=== PATIENT | male | born 1990 ===

== ENCOUNTER 2017-08-27 16:18 | Observation (INO) | payer MEDICAID, OTHER ==
[2017-08-27] MEDS ORDERED: Sodium Chloride 0.9% 1,000 ML IV STA (17:02)
--- NOTE | 2017-08-27 17:33 | ED PDOC ---
Arrival/HPI - General Chief Complaint: ENT Problem Time Seen by Provider: 08/27/17 17:01 Historian: Patient - History of Present Illness Narrative History of Present Illness (Text): 08/27/17 17:30 27-year-old male presents today with a one-day history of sore throat pain with swallowing. Patient also states is having right sided back and abdominal pain for the past 3 weeks that has worsened since yesterday. Patient denies nausea vomiting diarrhea or constipation. He denies chest pain or shortness of breath. He denies any urinary symptoms. Patient denies testicular pain. Patient denies rash. Patient denies fevers or chills. Patient states today he developed a sore throat. Patient states that he came in today because the pain worsened yesterday and he is unable to follow up with a doctor. pt describes the pain as a burning and achy sensation to the right ribs/back. Patient denies sick contacts. no other complaints. no medications have been taken for pain at home. Time/Duration: > week Symptom Onset: Gradual Symptom Course: Worsening Past Medical History - Provider Review Nursing Documentation Reviewed: Yes - Travel History Have you recently traveled outside [place] w/in the past 3 mons?: No - Infectious Disease Hx of Infectious Diseases: None - Tetanus Immunization Tetanus Immunization: Unknown - Psychiatric Hx Psychophysiologic Disorder: No Hx Substance Use: No - Anesthesia Hx Anesthesia: No Hx Anesthesia Reactions: No Hx Malignant Hyperthermia: No Family/Social History - Physician Review Nursing Documentation Reviewed: Yes Family/Social History: Unknown Family HX Smoking Status: Never Smoked Hx Alcohol Use: No Hx Substance Use: No Allergies/Home Meds Allergies/Adverse Reactions: Allergies acetaminophen [From Tylenol] Allergy (Verified 08/27/17 16:51) RASH Review of Systems - Review of Systems Constitutional: absent: Fatigue, Fevers ENT: Sore Throat. absent: Sinus Congestion Respiratory: absent: SOB, Cough Cardiovascular: absent: Chest Pain, Palpitations Gastrointestinal: Abdominal Pain. absent: Constipation, Diarrhea, Nausea, Vomiting Genitourinary Male: Other (no testicular pain). absent: Dysuria, Frequency, Hematuria, Urinary Output Changes Musculoskeletal: Back Pain. absent: Arthralgias, Neck Pain Skin: absent: Rash, Pruritis Neurological: absent: Headache, Dizziness Psychiatric: absent: Anxiety, Depression Physical Exam Vital Signs Reviewed: Yes Vital Signs Temp Pulse Resp BP Pulse Ox 08/27/17 21:33 98.9 F 86 18 157/77 H 100 08/27/17 16:52 99.0 F 88 17 136/81 98 08/27/17 16:35 99.0 F 91 H 20 130/70 99 Temperature: Afebrile Blood Pressure: Normal Pulse: Regular Respiratory Rate: Normal Appearance: Positive for: Well-Appearing, Non-Toxic, Comfortable Pain Distress: None Mental Status: Positive for: Alert and Oriented X 3 - Systems Exam Head: Present: Atraumatic Mouth: Present: Moist Mucous Membranes Neck: Present: Normal Range of Motion Respiratory/Chest: Present: Clear to Auscultation, Good Air Exchange. No: Respiratory Distress, Accessory Muscle Use Cardiovascular: Present: Regular Rate and Rhythm, Normal S1, S2. No: Murmurs Abdomen: Present: Tenderness (minimal ruq tenderness, rlq tenderness). No: Distention, Peritoneal Signs, Rebound, Guarding Back: Present: Normal Inspection, Other (minimal right flank tenderness. ). No : CVA Tenderness, Midline Tenderness, Paraspinal Tenderness Upper Extremity: No: Normal Inspection Lower Extremity: No: Normal Inspection Neurological: Present: GCS=15, Speech Normal Skin: Present: Warm, Dry, Normal Color. No: Rashes Psychiatric: Present: Alert, Oriented x 3 Medical Decision Making ED Course and Treatment: 08/27/17 17:39 Patient is nontoxic well appearing with stable vital signs presenting with right sided back and abdominal pain CBC wbc; 14.1 CMP wnl Lipase wnl Urinalysis trace ketones CAT scan: FINDINGS: Lung bases: No mass. No consolidation. Mediastinum: An air-fluid level is visualized within the distal esophagus, suggestive of decreased motility or reflux. ABDOMEN: Liver: No mass. Gallbladder and bile ducts: No calcified stones. No ductal dilation. Pancreas: Normal contour, without acute peripancreatic stranding. Spleen: No splenomegaly. Adrenals: No mass. Kidneys and ureters: At the midpole of the left kidney, there is a 5 mm hypodense probable cyst. There is no hydronephrosis bilaterally. Stomach and bowel: A few borderline dilated small bowel loops are identified in the left lower quadrant, with an air-fluid level. Partial obstruction cannot be excluded. Evaluation of bowel is limited by the absence of oral contrast. PELVIS: Appendix: No findings to suggest acute appendicitis. Bladder: No mass. Reproductive: Unremarkable as visualized. ABDOMEN and PELVIS: Intraperitoneal space: No free air. Bones/joints: Within the right iliac bone, there is a nonspecific sclerotic lesion measuring 1.1 x 0.7 cm. There is mild disc bulging at L5-S1 Soft tissues: There is minimal herniation of fat into the umbilicus. Vasculature: No abdominal aortic aneurysm. Lymph nodes: No enlarged lymph nodes. IMPRESSION: 1. An air-fluid level is visualized within the distal esophagus, suggestive of decreased motility or reflux. 2. A few borderline dilated small bowel loops are identified in the left lower quadrant, with an air-fluid level. Partial obstruction cannot be excluded. Clinical correlation is recommended. 3. Additional CT findings described above. Patient reassessment: feeling slightly better; still c/o pain to the right side of the abdomen; minimal tenderness noted. Discussed all results with patient in depth case discussed with dr. roberson; will admit observational status for abdominal pain with ? small bowel obstruction with leukocytosis. Call placed to surgical tech all aspects of this case were discussed the attending of record. impression; abdominal pain, pharyngitis admit observational status to med/surg. 08/28/17 00:37 - Lab Interpretations Lab Results: 08/27/17 19:15 08/27/17 19:15 Lab Results 08/27/17 19:15: WBC 14.1 H, RBC 4.54, Hgb 14.0, Hct 40.3 L, MCV 88.8, MCH 30.8, MCHC 34.7, RDW 13.0, Plt Count 228, MPV 10.2, Gran % 84.2 H, Lymph % (Auto) 8.8 L, [place] % (Auto) 5.9, Eos % (Auto) 1.0 L, Baso % (Auto) 0.1, Gran # 11.89 H, Lymph # (Auto) 1.3, [place] # (Auto) 0.8 H, Eos # (Auto) 0.1, Baso # (Auto) 0.02 08/27/17 19:15: Sodium 145, Potassium 3.9, Chloride 105, Carbon Dioxide 26, Anion Gap 18, BUN 15, Creatinine 0.8, Est GFR ( Amer) > 60, Est GFR (Non- Af Amer) > 60, Random Glucose 97, Calcium 9.6, Total Bilirubin 0.4, AST 26, ALT 28, Alkaline Phosphatase 85, Total Creatine Kinase 39, Total Protein 8.0, Albumin 4.8, Globulin 3.2, Albumin/Globulin Ratio 1.5, Lipase 133 08/27/17 17:36: Urine Color Yellow, Urine Appearance Clear, Urine pH 6.0, Ur Specific [place] 1.025, Urine Protein Negative, Urine Glucose (UA) Negative, Urine Ketones Trace H, Urine Blood Negative, Urine Nitrate Negative, Urine Bilirubin Negative, Urine Urobilinogen 0.2, Ur Leukocyte Esterase Negative 08/27/17 17:36: Grp A Beta Strep Ag Negative - RAD Interpretation Radiology Orders: 08/27/17 17:02 ABD & PELVIS IV CONTRAST ONLY [CT] Stat 08/27/17 17:39 CHEST PORTABLE [RAD] Stat - Medication Orders Current Medication Orders: Discontinued Medications Famotidine (Pepcid) 20 mg IVP STAT STA Stop: 08/27/17 23:18 Sodium Chloride (Sodium Chloride 0.9%) 1,000 mls @ 999 mls/hr IV .Q1H1M STA Stop: 08/27/17 18:02 Last Admin: 08/27/17 19:05 Dose: 999 mls/hr eMAR Start Stop Document 08/27/17 19:05 LA (Rec: 08/27/17 19:06 LA [facility]) Intravenous Solution Start Date 08/27/17 Start Time 19:06 End Date 08/27/17 End time 20:07 Total Infusion Time 61 Ketorolac Tromethamine (Toradol) 30 mg IVP STAT STA Stop: 08/27/17 17:03 Last Admin: 08/27/17 19:05 Dose: 30 mg [place] Pain Assessment Document 08/27/17 19:05 LA (Rec: 08/27/17 19:05 [facility] Pain Reassessment Is this a pain reassessment? Yes Sleep Is patient sleeping during reassessment? No Presence of Pain Presence of Pain Yes Pain Scale Used Pain Scale Used Numeric Description Intensity of Pain at present 5 IVP Administration Document 08/27/17 19:05 LA (Rec: 08/27/17 19:05 LA [facility]) Charges for Administration # of IVP Administrations 1 Re-Assess: [place] Pain Assessment Document 08/27/17 20:05 LA (Rec: 08/27/17 20:36 [place] [facility] Pain Reassessment Is this a pain reassessment? Yes Sleep Is patient sleeping during reassessment? No Presence of Pain Presence of Pain Yes Pain Scale Used Pain Scale Used Numeric Location Pain Location Body Site Throat Neck Description Description Constant Intensity of Pain at present 4 Disposition/Present on Arrival - Present on Arrival Any Indicators Present on Arrival: No History of DVT/PE: No History of Uncontrolled Diabetes: No Urinary Catheter: No History of Decub. Ulcer: No History Surgical Site Infection Following: None - Disposition Have Diagnosis and Disposition been Completed?: Yes Diagnosis: Abdominal pain, Leukocytosis Disposition: HOME/ ROUTINE Disposition Time: 00:10 Patient Plan: Observation Patient Problems: Current Active Problems Problem Status Onset Abdominal pain Acute Leukocytosis Acute Condition: FAIR
[2017-08-27 17:52] LABS: URINE BILIRUBIN NEGATIVE (NEGATIVE); URINE BLOOD NEGATIVE (NEGATIVE); URINE GLUCOSE (UA) NEGATIVE (NEGATIVE); URINE LEUKOCYTE ESTERASE NEGATIVE Leu/uL (NEGATIVE); URINE UROBILINOGEN 0.2 E.U./dL (<1 E.U./dL)
[2017-08-27 17:55] LABS: URINE APPEARANCE CLEAR (CLEAR); URINE COLOR YELLOW (YELLOW); URINE PROTEIN NEGATIVE mg/dL (<30 mg/dL)
--- NOTE | 2017-08-27 18:51 | RAD ---
HISTORY: Abdominal pain. History of bronchitis. COMPARISON: None FINDINGS: LUNGS: No active pulmonary disease. PLEURA: No significant pleural effusion identified, no pneumothorax apparent. CARDIOVASCULAR: Normal. OSSEOUS STRUCTURES: No significant abnormalities. VISUALIZED UPPER ABDOMEN: Normal. OTHER FINDINGS: None. IMPRESSION: No active disease.
[2017-08-27 19:26] LABS: BASO # 0.02 K/mm3 (0.0-2.0); BASO % 0.1 % (0.0-3.0); EOS # 0.1 (0.0-0.7); GRAN # 11.89 (1.4-6.5); GRAN % 84.2 % (50.0-68.0); LYMPH # 1.3 (1.2-3.4); LYMPH % 8.8 % (22.0-35.0); MEAN CELL VOLUME 88.8 fl (80.0-105.0); MEAN CORPUSCULAR HEMOGLOBIN 30.8 pg (25.0-35.0); MEAN CORPUSCULAR HGB CONC 34.7 g/dl (31.0-37.0); MEAN PLATELET VOLUME 10.2 fl (7.0-11.0); MONO # 0.8 (0.1-0.6); MONO % 5.9 % (1.0-6.0); RBC 4.54 10^6/uL (3.5-6.1); WHITE BLOOD COUNT 14.1 10^3/ul (4.5-11.0)
[2017-08-27 19:37] LABS: ALB/GLOB RATIO 1.5 (1.1-1.8); ALBUMIN 4.8 g/dL (3.0-4.8); ALT/SGPT 28 U/L (7-56); AST/SGOT 26 U/L (17-59); BLOOD UREA NITROGEN 15 mg/dL (7-21); CALCIUM 9.6 mg/dL (8.4-10.5); GFR AFRICAN-AMERICAN > 60; GFR NON-AFRICAN AMERICAN > 60; LIPASE 133 U/L (23-300)
[2017-08-27] MEDS ORDERED: Iohexol 350 MG/100 ML VIAL ONE (20:00)
--- NOTE | 2017-08-27 22:00 | CT ---
EXAM: CT Abdomen and Pelvis With Intravenous Contrast EXAM DATE/TIME: 08/27/2017 5:02 PM CLINICAL HISTORY: The patient age is 27 years old and is male; Pain; Abdominal pain; Acute; Additional info: Abd pain Facility exam id and description: Ct abdpelciv abd pelvis iv contrast only TECHNIQUE: Axial computed tomography images of the abdomen and pelvis with intravenous contrast. All CT scans at this facility use at least one of these dose optimization techniques: automated exposure control; mA and/or kV adjustment per patient size (includes targeted exams where dose is matched to clinical indication); or iterative reconstruction. Coronal and sagittal reformatted images were created and reviewed. CONTRAST: 100 mL of omni 350 administered intravenously. COMPARISON: No relevant prior studies available. FINDINGS: Lung bases: No mass. No consolidation. Mediastinum: An air-fluid level is visualized within the distal esophagus, suggestive of decreased motility or reflux. ABDOMEN: Liver: No mass. Gallbladder and bile ducts: No calcified stones. No ductal dilation. Pancreas: Normal contour, without acute peripancreatic stranding. Spleen: No splenomegaly. Adrenals: No mass. Kidneys and ureters: At the midpole of the left kidney, there is a 5 mm hypodense probable cyst. There is no hydronephrosis bilaterally. Stomach and bowel: A few borderline dilated small bowel loops are identified in the left lower quadrant, with an air-fluid level. Partial obstruction cannot be excluded. Evaluation of bowel is limited by the absence of oral contrast. PELVIS: Appendix: No findings to suggest acute appendicitis. Bladder: No mass. Reproductive: Unremarkable as visualized. ABDOMEN and PELVIS: Intraperitoneal space: No free air. Bones/joints: Within the right iliac bone, there is a nonspecific sclerotic lesion measuring 1.1 x 0.7 cm. There is mild disc bulging at L5-S1 Soft tissues: There is minimal herniation of fat into the umbilicus. Vasculature: No abdominal aortic aneurysm. Lymph nodes: No enlarged lymph nodes. IMPRESSION: 1. An air-fluid level is visualized within the distal esophagus, suggestive of decreased motility or reflux. 2. A few borderline dilated small bowel loops are identified in the left lower quadrant, with an air-fluid level. Partial obstruction cannot be excluded. Clinical correlation is recommended. 3. Additional CT findings described above.
--- NOTE | 2017-08-28 02:27 | CP.PCM.HP ---
<Rogers Britt - Last Filed: 08/28/17 06:16> History of Present Illness - History of Present Illness History of Present Illness: CC: Abdominal pain HPI: Mr. Bazan is a 27 year old Male who presents with right abdominal pain and throat pain. His abdominal pain is rated 10/10 per patient and is located in the upper R quadrant. Made worse with deep breaths. Radiates to back and up underneath the rib cage, causing him to feel bloated. Patient denies chest pain but admits to shortness of breath over the past few weeks during which the patient has also had intractable diarrhea. Patient describes bowel movements as unformed and non-bloody and occurring 4 times per day. Patient states that yesterday was his first formed bowel movement in a few weeks. Patient reports at least 10 lb weight loss over past month along with poor appetite. Of note, patient had a bout of bronchitis 2 weeks ago at an outside institution that patient said was resolved. Beginning 2 days ago, patient admits to vague upper respiratory symptoms of congestion, runny nose, scratchy throat but no cough. PMHx: Meningitis as a child PSHx: denies Allergies: tylenol (hives) Social: Frequent marijuana use (5-6 times per day). Denies ETOH and tobacco Fam Hx: alcohol abuse in father Meds: denies Present on Admission - Present on Admission Any Indicators Present on Admission: No Review of Systems - Review of Systems Review of Systems: Please refer to HPI. Past Patient History - Infectious Disease Hx of Infectious Diseases: None - Tetanus Immunizations Tetanus Immunization: Unknown - Past Social History Smoking Status: Never Smoked - CARDIAC Hx Cardiac Disorders: No - PULMONARY Hx Respiratory Disorders: Yes Hx Bronchitis: Yes - NEUROLOGICAL Hx Neurological Disorder: Yes Hx Meningitis: Yes (cerebtal age 9) - HEENT Hx HEENT Problems: No - RENAL Hx Chronic Kidney Disease: No - ENDOCRINE/METABOLIC Hx Endocrine Disorders: No - HEMATOLOGICAL/ONCOLOGICAL Hx Blood Disorders: No - INTEGUMENTARY Hx Dermatological Problems: No - MUSCULOSKELETAL/RHEUMATOLOGICAL Hx Musculoskeletal Disorders: No - GASTROINTESTINAL Hx Gastrointestinal Disorders: No - GENITOURINARY/GYNECOLOGICAL Hx Genitourinary Disorders: No - PSYCHIATRIC Hx Psychophysiologic Disorder: Yes Hx Anxiety: Yes Hx Depression: Yes Hx Emotional Abuse: No - SURGICAL HISTORY Hx Surgeries: No - ANESTHESIA Hx Anesthesia: No Hx Anesthesia Reactions: No Hx Malignant Hyperthermia: No Meds Allergies/Adverse Reactions: Allergies Allergy/AdvReac Type Severity Reaction Status Date / Time acetaminophen [From Tylenol] Allergy RASH Verified 08/28/17 03:03 Physical Exam - Constitutional Appears: Well, No Acute Distress - Head Exam Head Exam: ATRAUMATIC, NORMOCEPHALIC - Eye Exam Eye Exam: EOMI, Normal appearance, PERRL Pupil Exam: NORMAL ACCOMODATION - ENT Exam ENT Exam: Mucous Membranes Dry - Neck Exam Neck exam: Positive for: Tenderness. Negative for: Lymphadenopathy - Respiratory Exam Respiratory Exam: Clear to Auscultation Bilateral. absent: Chest Wall Tenderness - Cardiovascular Exam Cardiovascular Exam: RRR, +S1, +S2. absent: Gallop, Rubs - GI/Abdominal Exam GI & Abdominal Exam: Hyperactive Bowel Sounds, Tenderness. absent: Distended, Firm, Rebound - Rectal Exam Rectal Exam: absent: Bloody Stool Results - Vital Signs Recent Vital Signs: Last Vital Signs Temp 98.8 F 08/28/17 01:03 Pulse 80 08/28/17 01:03 Resp 18 08/28/17 01:03 BP 139/75 08/28/17 01:03 Pulse Ox 100 08/28/17 01:03 - Labs Result Diagrams: 08/27/17 19:15 08/27/17 19:15 Assessment & Plan - Assessment and Plan (Free Text) Assessment: Mr Bazan is a 27 M in no acute distress who is admitted for upper respiratory infection and r/o small bowel obstruction. Abdominal pain CT abd/pel showed borderline dilated small bowel loops in LLQ. Partial obstruction can not be ruled out. - IVF NS @125 ordered, as he is currently NPO Ibuprofen to control pain, allergic to acetaminophen - patient denies epigastric pain or radiation to the back - GI consult to evaluate 2-3 weeks of non-bloody diarrhea - Surgery consult to rule out small bowel obstruction- would appreciate recommendations Isolated leukocytosis WBC 14.1 f/u urine cx for possible source URI - begin Levaquin CXR shows no active disease Rapid Strep was negative Throat cx pending Ibuprofen to control pain, allergic to acetaminophen Follow up T4 TSH to evaluate for any thyroiditis that may be contributing f/u AM labs I have discussed this case with Dr. Deya Bravo and she has agreed with my assessments <Deya Bravo - Last Filed: 08/28/17 20:57> Results - Vital Signs Recent Vital Signs: Last Vital Signs Temp 98.3 F 08/28/17 17:45 Pulse 91 H 08/28/17 17:45 Resp 20 08/28/17 17:45 BP 127/84 08/28/17 17:45 Pulse Ox 100 08/28/17 17:45 - Labs Result Diagrams: 08/28/17 06:00 08/28/17 06:00 Labs: Laboratory Results - last 24 hr 08/28/17 08/28/17 08/28/17 06:00 06:00 06:00 WBC 11.5 H RBC 4.45 Hgb 13.6 L Hct 39.2 L MCV 88.1 MCH 30.6 MCHC 34.7 RDW 12.9 Plt Count 208 MPV 10.5 Gran % 74.3 H Lymph % (Auto) 16.3 L [place] % (Auto) 7.5 H Eos % (Auto) 1.6 Baso % (Auto) 0.3 Gran # 8.57 H Lymph # (Auto) 1.9 [place] # (Auto) 0.9 H Eos # (Auto) 0.2 Baso # (Auto) 0.03 Sodium 145 Potassium 3.3 L Chloride 106 Carbon Dioxide 25 Anion Gap 17 BUN 10 Creatinine 0.7 L Est GFR ( Amer) > 60 Est GFR (Non-Af Amer) > 60 Random Glucose 85 Calcium 9.1 Magnesium 1.8 Total Bilirubin 0.5 AST 20 ALT 27 Alkaline Phosphatase 64 Total Protein 7.0 Albumin 4.3 Globulin 2.7 Albumin/Globulin Ratio 1.6 Thyroxine (T4) 6.8 TSH 3rd Generation 1.65
[2017-08-28 02:44] VITALS: BMI 26.6
[2017-08-28] MEDS ORDERED: Pneumococcal 23-Valent Vaccine IM ONE (02:44)
[2017-08-28] MEDS: Sodium Chloride 0.9% 1,000 ML IV SCH ×3 (03:11→18:17)
[2017-08-28 06:49] LABS: BASO # 0.03 K/mm3 (0.0-2.0); BASO % 0.3 % (0.0-3.0); EOS # 0.2 (0.0-0.7); EOS % 1.6 % (1.5-5.0); GRAN # 8.57 (1.4-6.5); GRAN % 74.3 % (50.0-68.0); HEMOGLOBIN 13.6 g/dL (14.0-18.0); LYMPH # 1.9 (1.2-3.4); LYMPH % 16.3 % (22.0-35.0); MEAN CELL VOLUME 88.1 fl (80.0-105.0); MEAN CORPUSCULAR HEMOGLOBIN 30.6 pg (25.0-35.0); MEAN CORPUSCULAR HGB CONC 34.7 g/dl (31.0-37.0); MEAN PLATELET VOLUME 10.5 fl (7.0-11.0); MONO # 0.9 (0.1-0.6); MONO % 7.5 % (1.0-6.0); RBC 4.45 10^6/uL (3.5-6.1); RED CELL DISTRIBUTION WIDTH 12.9 % (11.5-14.5); WHITE BLOOD COUNT 11.5 10^3/ul (4.5-11.0)
[2017-08-28 07:25] LABS: T4 6.8 ug/dL (5.5-11.0)
--- NOTE | 2017-08-28 07:32 | CP.PCM.CON ---
History of Present Illness - History of Present Illness History of Present Illness: GI Consult Note for Dr. David Alcantara, PGY-3 This is a 27 yo with PMH of meningitis as child and active daily marijuana use ( 5-6x per day) who presents with 3-4 weeks abdominal pain and diarrhea. Reports diarrhea watery/loose, 4x per day on average, never bloody/tarry black. Normal formed BM 2 days prior to presentation, and then no BM since, but is still passing flatus daily. Reports chronic lower abdominal pain along waistline region, but more prominent in RUQ/RLQ regions, and was prompted to present after developing an acute worsening of the pain yesterday at RLQ region (since resolved). Admits intermittent mild nausea, but denies emesis/hematemesis, chest pain, shortness of breath, PO intolerance, greasy/fatty stools floating in bowel. Does admit to reduced appetite, intermittent sense of bloating, and approximately 10lb weight loss over last month (unintentional) due to reduced PO intake. Denies fevers, chills, dysuria, hematuria, focal weakness, or excessive belching. Does admit to sexual activity, > 1 partner, heterosexual only, not using protection, and later admits to having unprotected sex approx 1 week prior to onset of symptoms. Denies any hx of STI. All other ROS in 12- system review negative. PMH: as above PSH: denies Fam Hx: pt unsure Soc Hx: denies tobacco, admits social EtOH, regular marijuana use (5-6x per day according to pt report to primary team), denies other illicits, denies ever IVDA PMD: None Review of Systems - Review of Systems All systems: reviewed and no additional remarkable complaints except (as per HPI ) Past Patient History - Infectious Disease Hx of Infectious Diseases: None - Tetanus Immunizations Tetanus Immunization: Unknown - Past Social History Smoking Status: Never Smoked - CARDIAC Hx Cardiac Disorders: No - PULMONARY Hx Respiratory Disorders: Yes Hx Bronchitis: Yes - NEUROLOGICAL Hx Neurological Disorder: Yes Hx Meningitis: Yes (cerebtal age 9) - HEENT Hx HEENT Problems: No - RENAL Hx Chronic Kidney Disease: No - ENDOCRINE/METABOLIC Hx Endocrine Disorders: No - HEMATOLOGICAL/ONCOLOGICAL Hx Blood Disorders: No - INTEGUMENTARY Hx Dermatological Problems: No - MUSCULOSKELETAL/RHEUMATOLOGICAL Hx Musculoskeletal Disorders: No - GASTROINTESTINAL Hx Gastrointestinal Disorders: No - GENITOURINARY/GYNECOLOGICAL Hx Genitourinary Disorders: No - PSYCHIATRIC Hx Psychophysiologic Disorder: Yes Hx Anxiety: Yes Hx Depression: Yes Hx Emotional Abuse: No - SURGICAL HISTORY Hx Surgeries: No - ANESTHESIA Hx Anesthesia: No Hx Anesthesia Reactions: No Hx Malignant Hyperthermia: No Meds Allergies/Adverse Reactions: Allergies Allergy/AdvReac Type Severity Reaction Status Date / Time acetaminophen [From Tylenol] Allergy RASH Verified 08/28/17 03:03 - Medications Medications: Current Medications Sodium Chloride (Sodium Chloride 0.9%) 1,000 mls @ 125 mls/hr IV .Q8H [facility] Last Admin: 08/28/17 03:11 Dose: 125 mls/hr Levofloxacin/Dextrose (Levaquin 500mg) 500 mg in 100 mls @ 100 mls/hr IVPB DAILY ITZ PRN Reason: Protocol Ketorolac Tromethamine (Toradol) 15 mg IVP Q6H PRN PRN Reason: Pain, moderate (4-7) Ondansetron HCl (Zofran Inj) 4 mg IVP Q4H PRN PRN Reason: Nausea/Vomiting Physical Exam - Constitutional Appears: Well, Non-toxic, No Acute Distress - Head Exam Head Exam: ATRAUMATIC, NORMAL INSPECTION, NORMOCEPHALIC - Eye Exam Eye Exam: EOMI, Normal appearance. absent: Conjunctival injection, Scleral icterus Pupil Exam: absent: Fixed, Irregular - ENT Exam ENT Exam: Mucous Membranes Moist - Neck Exam Neck exam: Positive for: Normal Inspection - Respiratory Exam Respiratory Exam: Clear to Auscultation Bilateral, NORMAL BREATHING PATTERN. absent: Accessory Muscle Use, Chest Wall Tenderness, Decreased Breath Sounds, Prolonged Expiratory Phase, Rales, Rhonchi, Wheezes, Respiratory Distress - Cardiovascular Exam Cardiovascular Exam: REGULAR RHYTHM, RRR, +S1, +S2. absent: Bradycardia, Tachycardia, Irregular Rhythm, JVD, +S4 - GI/Abdominal Exam GI & Abdominal Exam: Normal Bowel Sounds, Soft, Tenderness (mild tenderness at RUQ and RLQ, RLQ > RUQ, no flank or CVA tenderness bilaterally). absent: Diminished Bowel Sounds, Distended, Firm, Guarding, Hyperactive Bowel Sounds, Hypoactive Bowel Sounds, Mass, Organomegaly, Pulsatile Mass, Rigid - Extremities Exam Extremities exam: Positive for: normal capillary refill, normal inspection, pedal pulses present. Negative for: calf tenderness, pedal edema, tenderness - Back Exam Back exam: absent: CVA tenderness (L), CVA tenderness (R) - Neurological Exam Additional comments: awake and alert, moving all extremities spontaneously, following all commands appropriately - Psychiatric Exam Psychiatric exam: Normal Affect, Normal Mood - Skin Skin Exam: Dry, Intact, Normal Color, Warm Results - Vital Signs Recent Vital Signs: Last Vital Signs Temp 98.7 F 08/28/17 01:39 Pulse 80 08/28/17 01:39 Resp 18 08/28/17 01:39 BP 124/87 08/28/17 01:39 Pulse Ox 100 08/28/17 01:03 - Labs Result Diagrams: 08/28/17 06:00 08/28/17 06:00 Labs: Laboratory Results - last 24 hr 08/28/17 08/28/17 06:00 06:00 WBC 11.5 H RBC 4.45 Hgb 13.6 L Hct 39.2 L MCV 88.1 MCH 30.6 MCHC 34.7 RDW 12.9 Plt Count 208 MPV 10.5 Gran % 74.3 H Lymph % (Auto) 16.3 L [place] % (Auto) 7.5 H Eos % (Auto) 1.6 Baso % (Auto) 0.3 Gran # 8.57 H Lymph # (Auto) 1.9 [place] # (Auto) 0.9 H Eos # (Auto) 0.2 Baso # (Auto) 0.03 Thyroxine (T4) 6.8 Assessment & Plan - Assessment and Plan (Free Text) Assessment: This is a 27 yo with PMH of meningitis as child and active daily marijuana use ( 5-6x per day) who presents with 3-4 weeks abdominal pain and diarrhea. GI was consulted due to CT being read as cannot rule out SBO, as well as RUQ/RLQ abd pain. Plan: RLQ/RUQ abd pain with nausea, no emesis Persistent diarrhea x3-4 weeks Air-fluid level at LLQ on CT abd/pelvis Area suspicious for inflammation at cecal region on CT -Diarrhea x3-4 weeks with decreased PO intake and RUQ/RLQ abd pain, suggestive of enteritis/collitis vs cholecystitis vs slowly developing appendicitis vs 2/2 significant and prolonged marijuana use -CT abd/pelvis obtained, notable for air-fluid level in distal esophagus ( decreased motility vs reflux), few borderline dilated small bowel loops in the left lower quadrant with air-fluid level (Partial obstruction cannot be excluded ) -Given lack of fever and WBCs, less likely appendicitis, but area in cecal region on CT concerning for inflammation, not clearly visible, will order CT abd /pelvis with PO contrast and reassess -Unlikely SBO as patient continues to have flatus daily -Trial clear liquid diet -Instructed pt in marijuana avoidance, in GI side-effects associated with marijuana use -Surgery also consulted, appreciate their input; no surgical indications at this time as per Surgery Patient seen, reviewed, and discussed with attending, Dr. Hernandez
[2017-08-28 07:42] LABS: ALB/GLOB RATIO 1.6 (1.1-1.8); ALBUMIN 4.3 g/dL (3.0-4.8); ALT/SGPT 27 U/L (7-56); AST/SGOT 20 U/L (17-59); BLOOD UREA NITROGEN 10 mg/dL (7-21); CALCIUM 9.1 mg/dL (8.4-10.5); GFR AFRICAN-AMERICAN > 60; GFR NON-AFRICAN AMERICAN > 60
[2017-08-28] MEDS ORDERED: Potassium Chloride 40 mEq/30 ml LIQ UD PO ONE (08:35)
--- NOTE | 2017-08-28 08:59 | CP.PCM.CON ---
History of Present Illness - History of Present Illness History of Present Illness: Surgery Consult: Dr. Winters Pt is a 27M with no significant PMHx who [place] [facility] [place] with complaints of abdominal pain x 1 month. Pt states he has been having on/off abdominal pain for the past month with non-bloody diarrhea. Pt states the pain is mostly located in the RLQ with radiation to the back. He states the pain isn't associated with anything, however he did note an improvement when avoiding fatty /salty foods. Pt has been waiting to follow up with a medical doctor however yesterday his pain was severe and he decided to come to the ER. He denies any other associated symptoms such as nausea/vomiting, fevers or chills. In the ER, pt had a CT abdomen/pelvis which showed non-specific findings & some dilated loop of intestine concerning for obstruction. Surgery called to evaluate. Currently, pt is resting comfortably in bed. States he feels better compared to when he came in. Continues to have loose BMs. Denies N/V, F/C, chest pain or SOB. PMHx: meningitis as infant PSHx: denies SocialHx: denies smoking, EtOH/drugs All: Acetaminophen Review of Systems - Review of Systems All systems: reviewed and no additional remarkable complaints except (as per HPI ) Past Patient History - Infectious Disease Hx of Infectious Diseases: None - Tetanus Immunizations Tetanus Immunization: Unknown - Past Social History Smoking Status: Never Smoked - CARDIAC Hx Cardiac Disorders: No - NEUROLOGICAL Hx Meningitis: Yes - HEENT Hx HEENT Problems: No - RENAL Hx Chronic Kidney Disease: No - ENDOCRINE/METABOLIC Hx Endocrine Disorders: No - HEMATOLOGICAL/ONCOLOGICAL Hx Blood Disorders: No - INTEGUMENTARY Hx Dermatological Problems: No - MUSCULOSKELETAL/RHEUMATOLOGICAL Hx Musculoskeletal Disorders: No - GASTROINTESTINAL Hx Gastrointestinal Disorders: No - GENITOURINARY/GYNECOLOGICAL Hx Genitourinary Disorders: No - PSYCHIATRIC Hx Psychophysiologic Disorder: Yes Hx Anxiety: Yes Hx Depression: Yes Hx Emotional Abuse: No - SURGICAL HISTORY Hx Surgeries: No - ANESTHESIA Hx Anesthesia: No Hx Anesthesia Reactions: No Hx Malignant Hyperthermia: No Meds Allergies/Adverse Reactions: Allergies Allergy/AdvReac Type Severity Reaction Status Date / Time acetaminophen [From Tylenol] Allergy RASH Verified 08/28/17 03:03 - Medications Medications: Current Medications Sodium Chloride (Sodium Chloride 0.9%) 1,000 mls @ 125 mls/hr IV .Q8H [facility] Last Admin: 08/28/17 03:11 Dose: 125 mls/hr Levofloxacin/Dextrose (Levaquin 500mg) 500 mg in 100 mls @ 100 mls/hr IVPB DAILY [facility] PRN Reason: Protocol Ketorolac Tromethamine (Toradol) 15 mg IVP Q6H PRN PRN Reason: Pain, moderate (4-7) Ondansetron HCl (Zofran Inj) 4 mg IVP Q4H PRN PRN Reason: Nausea/Vomiting Physical Exam - Constitutional Appears: Well, No Acute Distress - Head Exam Head Exam: ATRAUMATIC, NORMOCEPHALIC - Eye Exam Eye Exam: Normal appearance - ENT Exam ENT Exam: Mucous Membranes Moist - Respiratory Exam Respiratory Exam: NORMAL BREATHING PATTERN - Cardiovascular Exam Cardiovascular Exam: RRR - GI/Abdominal Exam GI & Abdominal Exam: Soft. absent: Distended, Guarding, Rebound, Tenderness - Neurological Exam Neurological exam: Alert, Oriented x3 - Skin Skin Exam: Dry, Warm Results - Vital Signs Recent Vital Signs: Last Vital Signs Temp 98.3 F 08/28/17 06:00 Pulse 110 H 08/28/17 06:00 Resp 18 08/28/17 06:00 BP 120/73 08/28/17 06:00 Pulse Ox 99 08/28/17 06:00 - Labs Result Diagrams: 08/28/17 06:00 08/28/17 06:00 Labs: Laboratory Results - last 24 hr 08/28/17 08/28/17 08/28/17 06:00 06:00 06:00 WBC 11.5 H RBC 4.45 Hgb 13.6 L Hct 39.2 L MCV 88.1 MCH 30.6 MCHC 34.7 RDW 12.9 Plt Count 208 MPV 10.5 Gran % 74.3 H Lymph % (Auto) 16.3 L [place] % (Auto) 7.5 H Eos % (Auto) 1.6 Baso % (Auto) 0.3 Gran # 8.57 H Lymph # (Auto) 1.9 [place] # (Auto) 0.9 H Eos # (Auto) 0.2 Baso # (Auto) 0.03 Sodium 145 Potassium 3.3 L Chloride 106 Carbon Dioxide 25 Anion Gap 17 BUN 10 Creatinine 0.7 L Est GFR ( Amer) > 60 Est GFR (Non-Af Amer) > 60 Random Glucose 85 Calcium 9.1 Total Bilirubin 0.5 AST 20 ALT 27 Alkaline Phosphatase 64 Total Protein 7.0 Albumin 4.3 Globulin 2.7 Albumin/Globulin Ratio 1.6 Thyroxine (T4) 6.8 TSH 3rd Generation 1.65 - Imaging and Cardiology CT scan - abdomen Status: Image reviewed by me, Report reviewed by me Assessment & Plan - Assessment and Plan (Free Text) Assessment: 27M with abdominal pain & diarrhea; r/o SBO Plan: - pt is not clinically obstructed & abdominal pain is improving - will start CLD and see how he tolerates - no plan for surgical intervention at this time; will follow - d/w Dr. Singh Calvo, PGY-3
[2017-08-28] MEDS ORDERED: levoFLOXacin 500 mg in D5W 500 MG/100 ML BAG IVPB SCH (10:00)
[2017-08-28] MEDS ORDERED: levoFLOXacin 500 MG TAB PO SCH (10:00)
[2017-08-29] MEDS: Sodium Chloride 0.9% 1,000 ML IV SCH (02:10)
[2017-08-29] MEDS ORDERED: Pantoprazole 40 mg EC Tab PO SCH (06:00)
[2017-08-29] MEDS ORDERED: Barium Sulfate Susp 2.1% w/v, 2.0% w/w 450 mL Bottle PO ONE (07:23)
[2017-08-29 08:03] LABS: BASO # 0.02 K/mm3 (0.0-2.0); BASO % 0.2 % (0.0-3.0); EOS # 0.3 (0.0-0.7); EOS % 2.9 % (1.5-5.0); GRAN # 8.14 (1.4-6.5); GRAN % 68.9 % (50.0-68.0); HEMOGLOBIN 13.1 g/dL (14.0-18.0); LYMPH # 2.3 (1.2-3.4); LYMPH % 19.7 % (22.0-35.0); MEAN CELL VOLUME 87.7 fl (80.0-105.0); MEAN CORPUSCULAR HGB CONC 35.3 g/dl (31.0-37.0); MEAN PLATELET VOLUME 10.1 fl (7.0-11.0); MONO % 8.3 % (1.0-6.0); RBC 4.23 10^6/uL (3.5-6.1); RED CELL DISTRIBUTION WIDTH 12.7 % (11.5-14.5); WHITE BLOOD COUNT 11.8 10^3/ul (4.5-11.0)
[2017-08-29 08:21] LABS: ALB/GLOB RATIO 1.4 (1.1-1.8); ALT/SGPT 30 U/L (7-56); AST/SGOT 15 U/L (17-59); BLOOD UREA NITROGEN 7 mg/dL (7-21); CALCIUM 8.6 mg/dL (8.4-10.5); GFR AFRICAN-AMERICAN > 60; GFR NON-AFRICAN AMERICAN > 60
--- NOTE | 2017-08-29 09:01 | CP.PCM.PN ---
Subjective - Date & Time of Evaluation Date of Evaluation: 08/29/17 Time of Evaluation: 08:59 - Subjective Subjective: General Surgery Note for: Dr. Winters. Pt was seen and examined this morning at bedside. Pt was advanced to clears but then developed abdominal pain and had 4 bouts of diarrhea. He is now placed NPO and currently does not complain of abdominal pain or nausea or vomiting. Denies any other overnight events. Objective - Vital Signs/Intake and Output Vital Signs (last 24 hours): Temp Pulse Resp BP Pulse Ox 98.5 F 86 20 122/82 99 08/29/17 08:55 08/29/17 08:55 08/29/17 08:55 08/29/17 08:55 08/29/17 08:55 Intake and Output: 08/29/17 08/29/17 06:59 18:59 Intake Total 1320 Balance 1320 - Medications Medications: Current Medications Famotidine (Pepcid) 20 mg PO 1000,2200 [facility] Last Admin: 08/28/17 21:32 Dose: 20 mg Sodium Chloride (Sodium Chloride 0.9%) 1,000 mls @ 125 mls/hr IV .Q8H [facility] Last Admin: 08/29/17 02:10 Dose: 125 mls/hr Ketorolac Tromethamine (Toradol) 15 mg IVP Q6H PRN PRN Reason: Pain, moderate (4-7) Last Admin: 08/29/17 06:31 Dose: 15 mg Ondansetron HCl (Zofran Inj) 4 mg IVP Q4H PRN PRN Reason: Nausea/Vomiting - Labs Labs: 08/29/17 07:45 08/29/17 07:45 - Constitutional Appears: Well, Non-toxic, No Acute Distress - Head Exam Head Exam: ATRAUMATIC, NORMOCEPHALIC - Eye Exam Eye Exam: EOMI, Normal appearance Pupil Exam: PERRL - Respiratory Exam Respiratory Exam: Clear to Ausculation Bilateral, NORMAL BREATHING PATTERN. absent: Accessory Muscle Use, Wheezes, Respiratory Distress - Cardiovascular Exam Cardiovascular Exam: REGULAR RHYTHM - GI/Abdominal Exam GI & Abdominal Exam: Soft, Tenderness (RLQ to deep palpation), Normal Bowel Sounds. absent: Distended, Firm, Guarding, Rigid - Neurological Exam Neurological Exam: Alert, Awake, Normal Gait, Oriented x3 - Psychiatric Exam Psychiatric exam: Normal Affect, Normal Mood - Skin Skin Exam: Dry, Intact, Normal Color, Warm. absent: Cyanosis, Petechiae Assessment and Plan - Assessment and Plan (Free Text) Assessment: Pt is a 27 yo M with abdominal pain and diarrhea, r/o SBO Plan: - On CLD and tolerating - Repeat CT with PO contrast showed no acute pathology - No surgical intervention planned at this time - Advance diet as tolerated - Discussed with Dr. Winters.
[2017-08-29] MEDS ORDERED: Benzocaine/Menthol (Cepacol) Lozenge MT PRN (11:46)
--- NOTE | 2017-08-29 13:16 | CT ---
PROCEDURE: CT Abdomen and Pelvis with contrast HISTORY: RLQ tenderness, nausea COMPARISON: Abdomen pelvis CT with contrast 08/27/2017. TECHNIQUE: Helical CT of the abdomen and pelvis was performed following oral contrast administration. Intravenous contrast was not administered as per referring physician request. Contrast dose: None Radiation dose: Total exam DLP = 419.66 mGy-cm. This CT exam was performed using one or more of the following dose reduction techniques: Automated exposure control, adjustment of the mA and/or kV according to patient size, and/or use of iterative reconstruction technique. FINDINGS: LOWER THORAX: Unremarkable. LIVER: Unremarkable. No gross lesion or ductal dilatation. GALLBLADDER AND BILE DUCTS: Vicarious excretion of iodinated contrast material identified within the gallbladder. PANCREAS: Unremarkable. No gross lesion or ductal dilatation. SPLEEN: Unremarkable. ADRENALS: Unremarkable. No mass. KIDNEYS AND URETERS: Unremarkable. No hydronephrosis. No solid mass. VASCULATURE: Unremarkable. No aortic aneurysm. BOWEL: Unremarkable. No obstruction. No gross mural thickening. APPENDIX: Stable, normal appearing appendix. PERITONEUM: Unremarkable. No free fluid. No free air. LYMPH NODES: Unremarkable. No enlarged lymph nodes. BLADDER: Unremarkable. REPRODUCTIVE: Unremarkable. BONES: Stable likely benign sclerotic focus right innominate bone. OTHER FINDINGS: None. IMPRESSION: 1. Nonacute abdomen pelvis CT examination including the appearance of the large and small bowel bowel/appendix. 2. No ascites or free intrarenal gas or urinary tract obstruction grossly evident.
--- NOTE | 2017-08-29 15:38 | CP.PCM.DIS ---
<Bj Romero - Last Filed: 08/29/17 22:15> Provider - Provider Date of Admission: 08/28/17 00:02 Attending physician: Dilcia Awad MD Time Spent in preparation of Discharge (in minutes): 45 Hospital Course - Lab Results Lab Results: Most Recent Lab Values WBC 11.8 10^3/ul (4.5-11.0) H 08/29/17 07:45 RBC 4.23 10^6/uL (3.5-6.1) 08/29/17 07:45 Hgb 13.1 g/dL (14.0-18.0) L 08/29/17 07:45 Hct 37.1 % (42.0-52.0) L 08/29/17 07:45 MCV 87.7 fl (80.0-105.0) 08/29/17 07:45 MCH 31.0 pg (25.0-35.0) 08/29/17 07:45 MCHC 35.3 g/dl (31.0-37.0) 08/29/17 07:45 RDW 12.7 % (11.5-14.5) 08/29/17 07:45 Plt Count 200 10^3/uL (120.0-450.0) 08/29/17 07:45 MPV 10.1 fl (7.0-11.0) 08/29/17 07:45 Gran % 68.9 % (50.0-68.0) H 08/29/17 07:45 Lymph % (Auto) 19.7 % (22.0-35.0) L 08/29/17 07:45 [place] % (Auto) 8.3 % (1.0-6.0) H 08/29/17 07:45 Eos % (Auto) 2.9 % (1.5-5.0) 08/29/17 07:45 Baso % (Auto) 0.2 % (0.0-3.0) 08/29/17 07:45 Gran # 8.14 (1.4-6.5) H 08/29/17 07:45 Lymph # (Auto) 2.3 (1.2-3.4) 08/29/17 07:45 [place] # (Auto) 1.0 (0.1-0.6) H 08/29/17 07:45 Eos # (Auto) 0.3 (0.0-0.7) 08/29/17 07:45 Baso # (Auto) 0.02 K/mm3 (0.0-2.0) 08/29/17 07:45 Sodium 142 mmol/L (132-148) 08/29/17 07:45 Potassium 3.7 mmol/L (3.6-5.0) 08/29/17 07:45 Chloride 105 mmol/L (98-107) 08/29/17 07:45 Carbon Dioxide 23 mmol/L (21-33) 08/29/17 07:45 Anion Gap 18 (10-20) 08/29/17 07:45 BUN 7 mg/dL (7-21) 08/29/17 07:45 Creatinine 0.7 mg/dl (0.8-1.5) L 08/29/17 07:45 Est GFR ( Amer) > 60 08/29/17 07:45 Est GFR (Non-Af Amer) > 60 08/29/17 07:45 Random Glucose 74 mg/dL (70-110) 08/29/17 07:45 Calcium 8.6 mg/dL (8.4-10.5) 08/29/17 07:45 Magnesium 1.8 mg/dL (1.7-2.2) 08/28/17 06:00 Total Bilirubin 0.7 mg/dL (0.2-1.3) 08/29/17 07:45 AST 15 U/L (17-59) L D 08/29/17 07:45 ALT 30 U/L (7-56) 08/29/17 07:45 Alkaline Phosphatase 59 U/L (38-126) 08/29/17 07:45 Total Creatine Kinase 39 U/L (35-230) 08/27/17 19:15 Total Protein 7.0 g/dL (5.8-8.3) 08/29/17 07:45 Albumin 4.0 g/dL (3.0-4.8) 08/29/17 07:45 Globulin 2.9 gm/dL 08/29/17 07:45 Albumin/Globulin Ratio 1.4 (1.1-1.8) 08/29/17 07:45 Lipase 133 U/L (23-300) 08/27/17 19:15 Thyroxine (T4) 6.8 ug/dL (5.5-11.0) 08/28/17 06:00 TSH 3rd Generation 1.65 mIU/mL (0.46-4.68) 08/28/17 06:00 Urine Color Yellow (YELLOW) 08/27/17 17:36 Urine Appearance Clear (CLEAR) 08/27/17 17:36 Urine pH 6.0 (4.7-8.0) 08/27/17 17:36 Ur Specific [place] 1.025 (1.005-1.035) 08/27/17 17:36 Urine Protein Negative mg/dL (<30 mg/dL) 08/27/17 17:36 Urine Glucose (UA) Negative mg/dL (NEGATIVE) 08/27/17 17:36 Urine Ketones Trace mg/dL (NEGATIVE) H 08/27/17 17:36 Urine Blood Negative (NEGATIVE) 08/27/17 17:36 Urine Nitrate Negative (NEGATIVE) 08/27/17 17:36 Urine Bilirubin Negative (NEGATIVE) 08/27/17 17:36 Urine Urobilinogen 0.2 E.U./dL (<1 E.U./dL) 08/27/17 17:36 Ur Leukocyte Esterase Negative [place]/uL (NEGATIVE) 08/27/17 17:36 Grp A Beta Strep Ag Negative (NEGATIVE) 08/27/17 17:36 - Hospital Course Hospital Course: Mr. Bazan is a 27 year old male with PMH of meningitis as a child presenting with right abdominal pain and throat pain. In the course of his hospital stay, patient underwent abdominal/pelvic CT scans and chest xray. Initial abdominal CT with IV contrast showed borderline dilation of small bowel loops and air fluid levels in the distal esophagus indicating possible reflux. CT abdomen and pelvis with PO contrast was unremarkable, chest xray showed no active disease. Gastroenterology (Dr. Hernandez) and surgery (Dr. Winters) were consulted. Gastroenterology recommended trial of clear liquid diet for the abdominal pain. The patient states that the abdominal pain has improved. Surgery indicates no surgical intervention at this time. Patient's throat pain resolved and he is only complaining of a stuffy nose where he was instructed to drink plenty of fluids and get enough rest. Patient's diet was advanced to solid foods and he tolerated it well. Patient is now medically stable for discharge. Patient was scheduled to follow up at the [facility] at [place] next week and was further instructed to return to the emergency room for reoccurring symptoms or any other symptoms requiring any medical attention. Discharge Exam - Head Exam Head Exam: ATRAUMATIC, NORMOCEPHALIC - Eye Exam Eye Exam: Normal appearance - ENT Exam ENT Exam: Mucous Membranes Moist - Neck Exam Neck exam: Normal Inspection - Respiratory Exam Respiratory Exam: Clear to PA & Lateral, NORMAL BREATHING PATTERN. absent: Wheezes - Cardiovascular Exam Cardiovascular Exam: REGULAR RHYTHM, +S1, +S2 - GI/Abdominal Exam GI & Abdominal Exam: Normal Bowel Sounds, Soft, Unremarkable. absent: Tenderness - Extremities Exam Extremities exam: normal inspection - Psychiatric Exam Psychiatric exam: Normal Affect, Normal Mood - Skin Skin Exam: Dry, Normal Color, Warm Discharge Plan - Follow Up Plan Condition: FAIR Disposition: HOME/ ROUTINE Instructions: Acute Abdominal Pain (DC), Acute Abdominal Pain (GEN) Additional Instructions: 1. Follow up with [facility] as scheduled, on September 07 at 1 pm. 2. For cold symptoms, please drink lots of fluids and rest. Tylenol as needed. Return to ED if symptoms persist or worsen. 3. Stop taking Ibuprofen. 4 Please return if symptoms return. <Tahira Hernandez V - Last Filed: 08/29/17 23:32> Provider - Provider Date of Admission: 08/28/17 00:02 Attending physician: Dilcia Awad MD Hospital Course - Lab Results Lab Results: Most Recent Lab Values WBC 11.8 10^3/ul (4.5-11.0) H 08/29/17 07:45 RBC 4.23 10^6/uL (3.5-6.1) 08/29/17 07:45 Hgb 13.1 g/dL (14.0-18.0) L 08/29/17 07:45 Hct 37.1 % (42.0-52.0) L 08/29/17 07:45 MCV 87.7 fl (80.0-105.0) 08/29/17 07:45 MCH 31.0 pg (25.0-35.0) 08/29/17 07:45 MCHC 35.3 g/dl (31.0-37.0) 08/29/17 07:45 RDW 12.7 % (11.5-14.5) 08/29/17 07:45 Plt Count 200 10^3/uL (120.0-450.0) 08/29/17 07:45 MPV 10.1 fl (7.0-11.0) 08/29/17 07:45 Gran % 68.9 % (50.0-68.0) H 08/29/17 07:45 Lymph % (Auto) 19.7 % (22.0-35.0) L 08/29/17 07:45 [place] % (Auto) 8.3 % (1.0-6.0) H 08/29/17 07:45 Eos % (Auto) 2.9 % (1.5-5.0) 08/29/17 07:45 Baso % (Auto) 0.2 % (0.0-3.0) 08/29/17 07:45 Gran # 8.14 (1.4-6.5) H 08/29/17 07:45 Lymph # (Auto) 2.3 (1.2-3.4) 08/29/17 07:45 [place] # (Auto) 1.0 (0.1-0.6) H 08/29/17 07:45 Eos # (Auto) 0.3 (0.0-0.7) 08/29/17 07:45 Baso # (Auto) 0.02 K/mm3 (0.0-2.0) 08/29/17 07:45 Sodium 142 mmol/L (132-148) 08/29/17 07:45 Potassium 3.7 mmol/L (3.6-5.0) 08/29/17 07:45 Chloride 105 mmol/L (98-107) 08/29/17 07:45 Carbon Dioxide 23 mmol/L (21-33) 08/29/17 07:45 Anion Gap 18 (10-20) 08/29/17 07:45 BUN 7 mg/dL (7-21) 08/29/17 07:45 Creatinine 0.7 mg/dl (0.8-1.5) L 08/29/17 07:45 Est GFR ( Amer) > 60 08/29/17 07:45 Est GFR (Non-Af Amer) > 60 08/29/17 07:45 Random Glucose 74 mg/dL (70-110) 08/29/17 07:45 Calcium 8.6 mg/dL (8.4-10.5) 08/29/17 07:45 Magnesium 1.8 mg/dL (1.7-2.2) 08/28/17 06:00 Total Bilirubin 0.7 mg/dL (0.2-1.3) 08/29/17 07:45 AST 15 U/L (17-59) L D 08/29/17 07:45 ALT 30 U/L (7-56) 08/29/17 07:45 Alkaline Phosphatase 59 U/L (38-126) 08/29/17 07:45 Total Creatine Kinase 39 U/L (35-230) 08/27/17 19:15 Total Protein 7.0 g/dL (5.8-8.3) 08/29/17 07:45 Albumin 4.0 g/dL (3.0-4.8) 08/29/17 07:45 Globulin 2.9 gm/dL 08/29/17 07:45 Albumin/Globulin Ratio 1.4 (1.1-1.8) 08/29/17 07:45 Lipase 133 U/L (23-300) 08/27/17 19:15 Thyroxine (T4) 6.8 ug/dL (5.5-11.0) 08/28/17 06:00 TSH 3rd Generation 1.65 mIU/mL (0.46-4.68) 08/28/17 06:00 Urine Color Yellow (YELLOW) 08/27/17 17:36 Urine Appearance Clear (CLEAR) 08/27/17 17:36 Urine pH 6.0 (4.7-8.0) 08/27/17 17:36 Ur Specific [place] 1.025 (1.005-1.035) 08/27/17 17:36 Urine Protein Negative mg/dL (<30 mg/dL) 08/27/17 17:36 Urine Glucose (UA) Negative mg/dL (NEGATIVE) 08/27/17 17:36 Urine Ketones Trace mg/dL (NEGATIVE) H 08/27/17 17:36 Urine Blood Negative (NEGATIVE) 08/27/17 17:36 Urine Nitrate Negative (NEGATIVE) 08/27/17 17:36 Urine Bilirubin Negative (NEGATIVE) 08/27/17 17:36 Urine Urobilinogen 0.2 E.U./dL (<1 E.U./dL) 08/27/17 17:36 Ur Leukocyte Esterase Negative [place]/uL (NEGATIVE) 08/27/17 17:36 RPR Nonreactive (NONREACTIVE) 08/28/17 17:25 Grp A Beta Strep Ag Negative (NEGATIVE) 08/27/17 17:36 Attending/Attestation - Attestation I have personally seen and examined this patient.: Yes I have fully participated in the care of the patient.: Yes I have reviewed all pertinent clinical information, including history, physical exam and plan: Yes Notes (Text): 08/29/17 23:32p <Brittney Short R - Last Filed: 08/30/17 17:02> Provider - Provider Date of Admission: 08/28/17 00:02 Attending physician: Dilcia Awad MD [facility] Course - Lab Results Lab Results: Most Recent Lab Values WBC 11.8 10^3/ul (4.5-11.0) H 08/29/17 07:45 RBC 4.23 10^6/uL (3.5-6.1) 08/29/17 07:45 Hgb 13.1 g/dL (14.0-18.0) L 08/29/17 07:45 Hct 37.1 % (42.0-52.0) L 08/29/17 07:45 MCV 87.7 fl (80.0-105.0) 08/29/17 07:45 MCH 31.0 pg (25.0-35.0) 08/29/17 07:45 MCHC 35.3 g/dl (31.0-37.0) 08/29/17 07:45 RDW 12.7 % (11.5-14.5) 08/29/17 07:45 Plt Count 200 10^3/uL (120.0-450.0) 08/29/17 07:45 MPV 10.1 fl (7.0-11.0) 08/29/17 07:45 Gran % 68.9 % (50.0-68.0) H 08/29/17 07:45 Lymph % (Auto) 19.7 % (22.0-35.0) L 08/29/17 07:45 [place] % (Auto) 8.3 % (1.0-6.0) H 08/29/17 07:45 Eos % (Auto) 2.9 % (1.5-5.0) 08/29/17 07:45 Baso % (Auto) 0.2 % (0.0-3.0) 08/29/17 07:45 Gran # 8.14 (1.4-6.5) H 08/29/17 07:45 Lymph # (Auto) 2.3 (1.2-3.4) 08/29/17 07:45 [place] # (Auto) 1.0 (0.1-0.6) H 08/29/17 07:45 Eos # (Auto) 0.3 (0.0-0.7) 08/29/17 07:45 Baso # (Auto) 0.02 K/mm3 (0.0-2.0) 08/29/17 07:45 Sodium 142 mmol/L (132-148) 08/29/17 07:45 Potassium 3.7 mmol/L (3.6-5.0) 08/29/17 07:45 Chloride 105 mmol/L (98-107) 08/29/17 07:45 Carbon Dioxide 23 mmol/L (21-33) 08/29/17 07:45 Anion Gap 18 (10-20) 08/29/17 07:45 BUN 7 mg/dL (7-21) 08/29/17 07:45 Creatinine 0.7 mg/dl (0.8-1.5) L 08/29/17 07:45 Est GFR ( Amer) > 60 08/29/17 07:45 Est GFR (Non-Af Amer) > 60 08/29/17 07:45 Random Glucose 74 mg/dL (70-110) 08/29/17 07:45 Calcium 8.6 mg/dL (8.4-10.5) 08/29/17 07:45 Magnesium 1.8 mg/dL (1.7-2.2) 08/28/17 06:00 Total Bilirubin 0.7 mg/dL (0.2-1.3) 08/29/17 07:45 AST 15 U/L (17-59) L D 08/29/17 07:45 ALT 30 U/L (7-56) 08/29/17 07:45 Alkaline Phosphatase 59 U/L (38-126) 08/29/17 07:45 Total Creatine Kinase 39 U/L (35-230) 08/27/17 19:15 Total Protein 7.0 g/dL (5.8-8.3) 08/29/17 07:45 Albumin 4.0 g/dL (3.0-4.8) 08/29/17 07:45 Globulin 2.9 gm/dL 08/29/17 07:45 Albumin/Globulin Ratio 1.4 (1.1-1.8) 08/29/17 07:45 Lipase 133 U/L (23-300) 08/27/17 19:15 Thyroxine (T4) 6.8 ug/dL (5.5-11.0) 08/28/17 06:00 TSH 3rd Generation 1.65 mIU/mL (0.46-4.68) 08/28/17 06:00 Urine Color Yellow (YELLOW) 08/27/17 17:36 Urine Appearance Clear (CLEAR) 08/27/17 17:36 Urine pH 6.0 (4.7-8.0) 08/27/17 17:36 Ur Specific [place] 1.025 (1.005-1.035) 08/27/17 17:36 Urine Protein Negative mg/dL (<30 mg/dL) 08/27/17 17:36 Urine Glucose (UA) Negative mg/dL (NEGATIVE) 08/27/17 17:36 Urine Ketones Trace mg/dL (NEGATIVE) H 08/27/17 17:36 Urine Blood Negative (NEGATIVE) 08/27/17 17:36 Urine Nitrate Negative (NEGATIVE) 08/27/17 17:36 Urine Bilirubin Negative (NEGATIVE) 08/27/17 17:36 Urine Urobilinogen 0.2 E.U./dL (<1 E.U./dL) 08/27/17 17:36 Ur Leukocyte Esterase Negative [place]/uL (NEGATIVE) 08/27/17 17:36 RPR Nonreactive (NONREACTIVE) 08/28/17 17:25 Grp A Beta Strep Ag Negative (NEGATIVE) 08/27/17 17:36 Attending/Attestation - Attestation Notes (Text): Patient seen and examined by me at 11:10 AM 08/29/17 with resident at bedside. Case including discharge planning discussed with resident. Agree with above with following additions/changes. Admitting diagnosis: 1. Abdominal pain and diarrhea 2. Leukocytosis 3. Upper respiratory infection Discharge diagnosis: 1. Abdominal pain, resolved 2. Diarrhea, improved 3. Leukocytosis 4. URI, viral Consultants called: Gastroenterology, Dr. Hudson; surgery, Dr. Winters Diagnostic imaging: CT abdomen and pelvis with contrast radiologist showed an air-fluid level visualized the distal esophagus suggestive of decreased motility of reflux; few borderline dilated small bowel loops identified in the left lower quadrant with an air-fluid level; partial obstruction cannot be excluded. Repeat CT abdomen and pelvis with by mouth contrast radiologist showed nonacute abdomen pelvis CT including the appearance of the large and small bowel/appendix me; no ascites or free intrarenal gas or urinary tract obstruction Reason for admission: Patient is a 27-year-old male that presented to the emergency room with right abdominal pain and sore throat. Please see H&P for details. Hospital course: Patient is a 27 past medical history significant for meningitis that presented to emergency room with right abdominal pain and sore throat. There was an initial question of patient having partial obstruction versus possible appendicitis. This was ruled out. Patient was seen by gastroenterology and surgery. Patient was placed on clear liquids. Patient was then advanced to solids. Patient tolerated diet. Diarrhea improved. Patient also complained of a sore throat. All cultures were negative. Sore throat improved. Patient then complained of symptoms of a cold. Patient was advised to stay well hydrated at home and to get plenty of rest. All symptoms improved upon discharge. Patient was cleared for discharge by all consultants. Patient was discharged home. She was advised to stay off the marijuana. Physical exam: Gen: Patient is awake and alert sitting up in bed in no acute distress HEENT: Normocephalic atraumatic, extraocular muscles intact, pupils equal reactive, oropharynx is pink and moist, no pharyngeal erythema or exudate appreciated, neck is supple. Cardiovascular: Normal rhythm, normal S1-S2, no murmurs rubs or gallops appreciated Pulmonary: Normal respiratory effort. No rhonchi, rales, or wheezing appreciated Gastrointestinal: Soft, nontender, nondistended, positive bowel sounds all 4 quadrants, no guarding Musculoskeletal: Moves all extremities, no calf tenderness, no CVA tenderness Central nervous system: AAO 3 Dermatologic: Skin warm and dry Follow-up instructions: Patient advised to follow up at the [facility] on 09/07/2017 at 1 PM. Patient to stay well-hydrated and get plenty of rest for cold symptoms. He should return to the ED if symptoms persist or worsen. Patient stopped taking ibuprofen. All instructions explained to the patient in detail. Patient both understands and agrees to all instructions. Please see chart for full details. Time spent on discharging patient including chart review, medication reconciliation, discussion with the patient, consultants, and nursing staff was approximately 35 minutes.
--- NOTE | 2017-08-29 15:40 | PN ---
DATE: 08/29/2017 SUBJECTIVE: Hero Bazan is seen with the family. The pain in the epigastric right upper quadrant is mostly improved. Vital signs are normal. White count is still elevated at 11, no particular reason. Liver functions are normal. The patient was seen by Dr. Hernandez, but I do not see a note yet. Repeat CAT scan is requested by him is a normal appendix. It was a normal exam. I think the next step would be an upper endoscopy. We will discuss with Dr. Hernandez, but I have no surgical intent at this time. We will follow up peripherally without surgical intent. Mick Winters MD
--- NOTE | 2017-08-29 16:25 | CP.PCM.PN ---
Subjective - Date & Time of Evaluation Date of Evaluation: 08/29/17 Time of Evaluation: 16:22 - Subjective Subjective: GI Progress Note for Dr. David Alcantara, IM PGY-3 Patient seen and examined at bedside. No acute events overnight. Abdominal pain improved this AM, no diarrhea reported by patient. Was additionally worked up by primary team for STDs yesterday as per his request; admits to unprotected sex, including approx 1 week before onset of symptoms. Currently, denies chest pain, shortness of breath, nausea, emesis. Objective - Vital Signs/Intake and Output Vital Signs (last 24 hours): Temp Pulse Resp BP Pulse Ox 98.5 F 86 20 122/82 99 08/29/17 08:55 08/29/17 08:55 08/29/17 08:55 08/29/17 08:55 08/29/17 08:55 Intake and Output: 08/29/17 08/29/17 06:59 18:59 Intake Total 1320 Balance 1320 - Medications Medications: Current Medications Benzocaine/Menthol (Cepacol Sore Throat) 1 dani MT Q2H PRN PRN Reason: Sore Throat Famotidine (Pepcid) 20 mg PO 1000,2200 ITZ Last Admin: 08/29/17 10:32 Dose: Not Given Ketorolac Tromethamine (Toradol) 15 mg IVP Q6H PRN PRN Reason: Pain, moderate (4-7) Last Admin: 08/29/17 06:31 Dose: 15 mg Ondansetron HCl (Zofran Inj) 4 mg IVP Q4H PRN PRN Reason: Nausea/Vomiting - Labs Labs: 08/29/17 07:45 08/29/17 07:45 - Additional Findings Additional findings: - Constitutional Appears: Well, Non-toxic, No Acute Distress - Head Exam Head Exam: ATRAUMATIC, NORMAL INSPECTION, NORMOCEPHALIC - Eye Exam Eye Exam: EOMI, Normal appearance. absent: Conjunctival injection, Scleral icterus Pupil Exam: absent: Fixed, Irregular - ENT Exam ENT Exam: Mucous Membranes Moist - Neck Exam Neck exam: Positive for: Normal Inspection - Respiratory Exam Respiratory Exam: Clear to Auscultation Bilateral, NORMAL BREATHING PATTERN. absent: Accessory Muscle Use, Chest Wall Tenderness, Decreased Breath Sounds, Prolonged Expiratory Phase, Rales, Rhonchi, Wheezes, Respiratory Distress - Cardiovascular Exam Cardiovascular Exam: REGULAR RHYTHM, RRR, +S1, +S2. absent: Bradycardia, Tachycardia, Irregular Rhythm, JVD, +S4 - GI/Abdominal Exam GI & Abdominal Exam: Normal Bowel Sounds, Soft, Tenderness (mild equal RLQ/RUQ tenderness, improved over exam yesterday). absent: Diminished Bowel Sounds, Distended, Firm, Guarding, Hyperactive Bowel Sounds, Hypoactive Bowel Sounds, Mass, Organomegaly, Pulsatile Mass, Rigid - Extremities Exam Extremities exam: Positive for: normal capillary refill, normal inspection, pedal pulses present. Negative for: calf tenderness, pedal edema, tenderness - Neurological Exam awake and alert, moving all extremities spontaneously, following all commands appropriately - Psychiatric Exam Psychiatric exam: Normal Affect, Normal Mood - Skin Skin Exam: Dry, Intact, Normal Color, Warm Assessment and Plan - Assessment and Plan (Free Text) Assessment: This is a 27 yo with PMH of meningitis as child and active daily marijuana use ( 5-6x per day) who presents with 3-4 weeks abdominal pain and diarrhea. GI was consulted due to RUQ/RLQ abd pain with CT scan concerning for possible SBO on admission. Plan: RLQ/RUQ abd pain with nausea, no emesis Persistent diarrhea x3-4 weeks Area suspicious for inflammation at cecal region on admission CT -Diarrhea x3-4 weeks with decreased PO intake and RUQ/RLQ abd pain, suggestive of enteritis/collitis vs cholecystitis vs slowly developing appendicitis vs 2/2 significant and prolonged marijuana use -CT abd/pelvis obtained, notable for air-fluid level in distal esophagus ( decreased motility vs reflux), few borderline dilated small bowel loops in the left lower quadrant with air-fluid level (Partial obstruction cannot be excluded ) -CT abd/pelvis with PO contrast obtained, reviewed with attending, unremarkable CT, no signs of appendicitis or brianda collitis -continues to remain afebrile, minimal leukocytosis (11.8), tolerating PO, and passing flatus -Instructed pt in marijuana avoidance, in GI side-effects associated with marijuana use -cleared by Surgery, no acute intervention indicated -Clear for discharge from GI standpoint as well, primary team notified Patient reviewed and discussed with attending, Dr. Hernandez
[2017-08-29 20:24] VITALS: BP 136/93; PULSE 82; RESP 19; TEMP 98.2; O2SAT 97
== END 2017-08-29 21:28 | disposition home or self-care (01) ==
LOC: ED 16:18 → ERH 08-28 00:02 → MERGE 08-28 00:02 → ERH 08-28 00:23 → 3RSO 08-28 01:08
PROVIDERS: ADMIT Internal Medicine; ATTEND Internal Medicine
DX: R10.11 Right upper quadrant pain (principal); R10.31 Right lower quadrant pain; J02.9 Acute pharyngitis, unspecified; R19.7 Diarrhea, unspecified; F12.90 Cannabis use, unspecified, uncomplicated; Z86.61 Personal history of infections of the central nervous system; Z88.6 Allergy status to analgesic agent
CPT/HCPCS: 36415; 71045; 74176; 74177; 80053; 81003; 82550; 83690; 83735; 84436; 84443; 85025; 86592; 87070; 87086; 87389; 87430; 87491; 87591; 96361; 96365; 96366; 96375; 96376; 99284; G0378; J1885; J3480; J7030; Q9967